=== PATIENT | female | born 1930 | race Caucasian/White ===

== ENCOUNTER 2016-06-22 00:01 | Outpatient (POV) ==
[2012-09-17 12:01] VITALS: TEMP 97.7
[2015-07-10 22:01] VITALS: BMI 23.9
== END 2016-06-22 00:02 ==
LOC: OUTPT 00:01
PROVIDERS: ATTEND Otolaryngology
DX: H69.90 Unspecified Eustachian tube disorder, unspecified ear (principal)
CPT/HCPCS: 92557; 92567

== ENCOUNTER 2016-06-28 09:23 | Outpatient (RCR) ==
[2012-09-17 12:01] VITALS: TEMP 97.7
[2015-07-10 22:01] VITALS: BMI 23.9
== END 2016-07-01 ==
LOC: NEWBEG 09:23
PROVIDERS: ATTEND Psychiatry & Neurology Psychiatry
DX: Z00.00 Encounter for general adult medical examination without abnormal findings (principal)

== ENCOUNTER 2016-07-08 00:01 | Outpatient (POV) ==
[2012-09-17 12:01] VITALS: TEMP 97.7
[2015-07-10 22:01] VITALS: BMI 23.9
== END 2016-07-08 00:02 ==
LOC: OUTPT 00:01
PROVIDERS: ATTEND Otolaryngology
DX: H69.90 Unspecified Eustachian tube disorder, unspecified ear (principal)
CPT/HCPCS: 92553; 92567

== ENCOUNTER 2016-07-22 11:59 | Outpatient (RCR) ==
[2012-09-17 12:01] VITALS: TEMP 97.7
[2015-07-10 22:01] VITALS: BMI 23.9
== END 2016-07-31 ==
LOC: NEWBEG 11:59
PROVIDERS: ATTEND Psychiatry & Neurology Psychiatry
DX: F41.9 Anxiety disorder, unspecified (principal)
CPT/HCPCS: 90792

== ENCOUNTER 2016-08-10 12:34 | Outpatient (CLI) ==
[2012-09-17 12:01] VITALS: TEMP 97.7
[2015-07-10 22:01] VITALS: BMI 23.9
--- NOTE | 2016-08-10 13:15 | DI ---
Exam: Two x-rays of the right hip. Comparison: CT of the abdomen pelvis performed on 04/28/2015. Reason for exam: Pain. FINDINGS: No acute fracture or dislocation. The femoral head articulates with the acetabulum. The re is mild degenerative disease with osteophyte formation and sclerosis. The bones are diffusely de mineralized. Impression: No acute fracture or dislocation in the right hip.
--- NOTE | 2016-08-10 13:23 | CT ---
EXAM: CT lumbar spine without contrast. HISTORY: Lower back pain into right hip COMPARISON: CT abdomen pelvis 04/28/2015 TECHNIQUE: Serial axial images of the spine were obtained from the lower thoracic spine through the pelvis without contrast. These were viewed in multiple planes. FINDINGS: Vertebral bodies demonstrate no acute compression fracture or subluxation. There is scat tered anterior and posterior osteophytes and facet arthropathy. There is narrowing and osteophyte f ormation at L5-S1. There is no lytic or blastic lesion. There is chronic appearing mild chronic we dge deformity at T11. L1-L2: Mild degenerative change with no central or neural foraminal narrowing. L2-L3: Small broad-based disc bulge and facet arthropathy with no central or neural foraminal narrow ing. L3-L4: There is a small broad-based disc bulge and facet arthropathy with no central or neural brittny inal narrowing. L4-L5: Broad-based disc bulge with mild central and mild bilateral neural foraminal narrowing. L5-S1: Broad-based disc bulge and facet arthropathy with mild central and bilateral mild to moderate neural foraminal narrowing. Limited views of the soft tissues are unremarkable with mild atherosclerotic change. IMPRESSION: 1. No acute compression fracture or subluxation. 2. Multilevel scattered degenerative disease most pronounced at L5-S1 with mild central bilateral m ild to moderate neural foraminal narrowing.
== END 2016-08-10 12:35 | disposition home or self-care (01) ==
LOC: RAD 12:34
PROVIDERS: ATTEND Internal Medicine
DX: M54.5 Low back pain (principal); M25.551 Pain in right hip

== ENCOUNTER 2016-08-16 10:00 | Outpatient (RCR) ==
[2012-09-17 12:01] VITALS: TEMP 97.7
[2015-07-10 22:01] VITALS: BMI 23.9
== END 2016-08-31 ==
LOC: NEWBEG 10:00
PROVIDERS: ATTEND Psychiatry & Neurology Psychiatry
DX: F41.9 Anxiety disorder, unspecified (principal)
CPT/HCPCS: 90837; 99213

== ENCOUNTER 2016-09-13 09:00 | Outpatient (RCR) ==
[2012-09-17 12:01] VITALS: TEMP 97.7
[2015-07-10 22:01] VITALS: BMI 23.9
== END 2016-09-30 ==
LOC: NEWBEG 09:00
PROVIDERS: ATTEND Psychiatry & Neurology Psychiatry
DX: F41.9 Anxiety disorder, unspecified (principal)
CPT/HCPCS: 90837; 99213

== ENCOUNTER 2016-09-22 06:41 | Outpatient (CLI) ==
[2012-09-17 12:01] VITALS: TEMP 97.7
[2015-07-10 22:01] VITALS: BMI 23.9
--- NOTE | 2016-09-26 08:55 | ECHO2D ---
Date of Exam: 09/22/16 Ordering Physician: NOMI ZAZUETA Reason for Echo: CHEST PAIN, HYPERTENSION, SOB M-Mode Normal Adult Results LV Dimensions Normal Adult Results AoV Opening excursions >1.6 >1.6 LVEDD-base- 3.5-5.8 4.5 Ao root dimensions 2.0-3.7 3.2 LVESD-base- 3.1-4.6 L. Atrium dimensions 1.9-3.8 4.2 Post. Wall thickness 0.8-1.1 1.0 IV septum (thickness) 0.7-1.2 1.2 Post. Wall excursion 0.72-1.3 NORMAL Septal motion NORMAL Systolic motion R. Ventricular cavity 1.5-2.0 NORMAL LVEF 60% 56% Paradoxical septal wall motion NORMAL 2-D : NORMAL LEFT VENTRICULAR CONTRACTILITY--NO EFFUSION NO THROMBUS, NORMAL VALVES, ENLARGED LEFT ATRIAL CAVITY M-MODE: MV: NORMAL AV: NORMAL TV: NORMAL PV: CHAMBER SIZE: ENLARGED LEFT ATRIAL CAVITY WALL MOTION: NORMAL PERICARDIUM: NORMAL INTERPRETATION: 1. BORDERLINE LEFT VENTRICULAR HYPERTROPHY--ENLARGED LEFT ATRIAL CAVITY 2. NORMAL LEFT VENTRICULAR CONTRACTILITY 3. NORMAL VALVES MTDD
--- NOTE | 2016-09-26 09:39 | STRESSMOD ---
Ordering Physician: NOMI ZAZUETA Date of Test: 09/22/16 Medical History: CHEST PAIN, HYPERTENSION, SOB Current Medications: COREG, SYNTHROID, CLONIDINE, BENICAR, NIFEDIPINE, SIMVASTATIN, ALPRAZOLAM Physical Findings: S1, S2, NO S3 Resting EKG: SINUS RHYTHM, NO ACUTE CHANGES Target Heart Rate: 113/133 STAGE MPH/GRADE HEART RATE BPM BLOOD PRESSURE mmhg RHYTHM S-T SEGMENT UP DOWN SYMPTOMS,COMMENTS At Rest 57 160/70 SR X NONE 1 1.7/0% 2 1.7/5% 3 1.7/10% 4 2.5/12% 5 3.4/14% 6 4.2/16% 7 5.18% Immediately after 136 196/88 SR X FATIGUE Total Time: 2:43 Maximum Heart Rate Reached: 136 Reason for Termination: FATIGUE 2 MIN POST EXERCISE: HR 84 BPM, BP 198/66 MMHG, SR, +/- 8 MIN POST EXERCISE: HR 62 BPM, BP 138/74 MMHG, SR, +/- INTERPRETATION: 95% OXYGEN SATURATION WITH EXERCISE 1. NO EVIDENCE OF ISCHEMIA BY ST-T WAVE 2. NO CHEST PAIN OR CHEST DISCOMFORT 3. NO ARRHYTHMIAS 4. BLOOD PRESSURE RESPONSE: HYPERTENSION WITH EXERCISE NORMAL LEFT VENTRICULAR CONTRACTILITY--RESTING AND POST EXERCISE MTDD
--- NOTE | 2016-09-26 09:51 | ECHOSTRESS ---
Date of Exam: 09/22/16 Ordering Physician: NOMI ZAZUETA Reason for Echo: CHEST PAIN, SOB, HYPERTENSION, STRESS TEST--NO ISCHEMIA M-Mode Normal Adult Results LV Dimensions Normal Adult Results AoV Opening excursions >1.6 LVEDD-base- 3.5-5.8 Ao root dimensions 2.0-3.7 LVESD-base- 3.1-4.6 L. Atrium dimensions 1.9-3.8 Post. Wall thickness 0.8-1.1 IV septum (thickness) 0.7-1.2 Post. Wall excursion 0.72-1.3 Septal motion Systolic motion R. Ventricular cavity 1.5-2.0 LVEF 60% Paradoxical septal wall motion 2-D: NORMAL LEFT VENTRICULAR CONTRACTILITY--RESTING AND POST EXERCISE M-MODE: MV: AV: TV: PV: CHAMBER SIZE: WALL MOTION: NORMAL LEFT VENTRICULAR CONTRACTILITY--RESTING AND POST EXERCISE PERICARDIUM: INTERPRETATION: 1. NORMAL LEFT VENTRICULAR CONTRACTILITY--RESTING AND POST EXERCISE MTDD
== END 2016-09-22 06:42 | disposition home or self-care (01) ==
LOC: CAR 06:41
PROVIDERS: ATTEND Internal Medicine
DX: R07.9 Chest pain, unspecified (principal); I10 Essential (primary) hypertension; R06.02 Shortness of breath

== ENCOUNTER 2016-10-03 07:00 | Outpatient (RCR) ==
[2012-09-17 12:01] VITALS: TEMP 97.7
[2015-07-10 22:01] VITALS: BMI 23.9
== END 2016-10-31 ==
LOC: NEWBEG 07:00
PROVIDERS: ATTEND Psychiatry & Neurology Psychiatry
DX: F41.9 Anxiety disorder, unspecified (principal)

== ENCOUNTER 2016-11-01 09:19 | Outpatient (RCR) ==
[2012-09-17 12:01] VITALS: TEMP 97.7
[2015-07-10 22:01] VITALS: BMI 23.9
== END 2016-12-01 ==
LOC: NEWBEG 09:19
PROVIDERS: ATTEND Psychiatry & Neurology Psychiatry
DX: X50.1XXA Overexertion from prolonged static or awkward postures, initial encounter (principal)

== ENCOUNTER 2017-06-14 07:55 | Outpatient (CLI) ==
[2012-09-17 12:01] VITALS: TEMP 97.7
[2015-07-10 22:01] VITALS: BMI 23.9
--- NOTE | 2017-06-14 09:33 | DI ---
EXAM: Double contrast esophagram and upper GI History: Dysphagia. Technique: Patient was given gas crystals. Patient was then given oral barium and multiple spot hugo ms of the esophagus, gastroesophageal junction, stomach and duodenum were obtained in multiple projec tions. Findings: The course and caliber of the esophagus are within normal limits. No mucosal lesions or filling defe cts identified. No filling defects or ulcerations are seen within the stomach. No obvious gastric p olyps. The course and caliber of the duodenum is within normal limits. No duodenal wall thickening. No duodenal diverticuli. No extravasation of contrast material. Cholecystectomy clips. No gastri c outlet obstruction. No hiatal hernia. No gastroesophageal reflux was observed during the course of this exam. Impression: Normal study.
== END 2017-06-14 07:56 | disposition home or self-care (01) ==
LOC: RAD 07:55
PROVIDERS: ATTEND Internal Medicine
DX: R13.10 Dysphagia, unspecified (principal)

== ENCOUNTER 2018-04-11 12:48 | Outpatient (CLI) | payer OTHER ==
[2012-09-17 12:01] VITALS: TEMP 97.7
[2015-07-10 22:01] VITALS: BMI 23.9
--- NOTE | 2018-05-15 10:39 | CARDEVENT ---
SUMMARY OF EVENTS Procedure Start Date: 04/11/18 Compliance: 91.29% Procedure Length: 30 days Symptomatic: 15.28% Recording Period: 04/11/18-05/08/18 Asymptomatic: 84.72% Report Span: - Wear Time: 613:30:00 Hrs Dormant Time: 58:30:00 Hrs INTERPRETATIONS: 1. BASIC RHYTHM: SINUS, RATE 35 BPM TO 90 BPM. 2. RARE PAC'S AND PVC'S 3. FEW SALVOS AND RUN OF FOUR PVC'S 4. COUPLE OF SVT/PAT, THREE TO SIX BEATS 5. NO PAUSES GREATER THAN 2.0 SECONDS MTDD
== END 2018-04-11 12:49 | disposition home or self-care (01) ==
LOC: CAR 12:48
PROVIDERS: ATTEND Internal Medicine
DX: R55 Syncope and collapse (principal); I10 Essential (primary) hypertension; R00.1 Bradycardia, unspecified

== ENCOUNTER 2018-06-26 14:26 | Inpatient (IN) ==
[2018-06-26 15:11] VITALS: BMI 23.1
[2018-06-26] MEDS: SODIUM CHLORIDE 1,000 ML IV SCH (15:42)
[2018-06-26] MEDS ORDERED: NITROSTAT SL PRN (15:47)
--- NOTE | 2018-06-26 17:38 | DI ---
Exam: Chest two-view HISTORY: Cough. Comparison: 03/20/2015. FINDINGS: Two views of the chest demonstrate hyper expanded lungs with no evidence of pneumonia or e renae. There is persistent blunting of the left costophrenic angle. The cardiac silhouette is mildly enlarged. The thoracic aorta is partially calcified. Calcified granulomata are noted. The pulmona ry vasculature is not congested. The skeletal structures are intact. There are degenerative finding s in the spine. Surgical clips again project over the bilateral axilla. IMPRESSION: No acute cardiopulmonary disease. Hyperexpanded lungs consistent with COPD. Atherosclerosis. Mild cardiomegaly.
--- NOTE | 2018-06-26 18:28 | CT ---
Exam: CT of the abdomen and pelvis without contrast History: Lower abdomen pain and tenderness Technique: [address] of the abdomen and pelvis without intravascular contrast FINDINGS: The lung bases are clear. No significant liver abnormality. The adrenals, pancreas and s pleen are unremarkable. The stomach and hiatus are unremarkable.Prior cholecystectomy. There is a 2 mm nonobstructing calculus in the right kidney. Otherwise, kidneys and proximal collecting system a re unremarkable. The appendix is not seen. Bowel loops demonstrate normal caliber. No inflamatory change seen in the mesentery or retroperitoneum. Generally mild jain colonic stool retention. Athero sclerotic calcification of the aorta without aneurysm. Colonic diverticulosis of the sigmoid. Pelvic fat inflammation. Normal urinary bladder. Prior hyst erectomy. No acute findings of the skeleton. Impression: 1. No inflammatory process, bowel or urinary obstruction is seen. 2. Single nonobstructing calculus of the right kidney 3. Colonic diverticulosis of the sigmoid
[2018-06-26] MEDS: MIRALAX PO SCH (20:50)
[2018-06-26] MEDS: CATAPRES PO SCH (20:50)
[2018-06-26] MEDS: XANAX PO SCH (20:50)
[2018-06-26] MEDS: OMEGA-3 FISH OIL PO SCH (20:50)
[2018-06-26] MEDS ORDERED: NON-FORMULARY MEDICATION (Clonidine Hcl [Clonidine Hcl] 0.2 MG) PO SCH (21:00)
[2018-06-26] MEDS ORDERED: NON-FORMULARY MEDICATION (Omega-3 Fatty Acids/Fish Oil [Fish Oil 1,000 Mg Capsule] 1,000 M PO SCH (21:00)
[2018-06-27] MEDS: SYNTHROID PO SCH (05:33)
[2018-06-27] MEDS: SODIUM CHLORIDE 1,000 ML IV SCH ×3 (05:33→22:31)
[2018-06-27] MEDS ORDERED: LASIX TAB PO SCH (06:30)
[2018-06-27] MEDS ORDERED: CITRATE OF MAGNESIA PO STA (08:27)
[2018-06-27] MEDS ORDERED: NIFEDIPINE 60 MG PO SCH (09:00)
[2018-06-27] MEDS ORDERED: [UNRECOGNIZED DRUG - OTHER] PO SCH (09:00)
[2018-06-27] MEDS: MIRALAX PO SCH ×2 (09:09→21:04)
[2018-06-27] MEDS: OMEGA-3 FISH OIL PO SCH ×3 (09:10→21:03)
[2018-06-27] MEDS: CATAPRES PO SCH ×2 (09:10→21:03)
[2018-06-27] MEDS: ASPIRIN CHEWABLE PO SCH (09:10)
[2018-06-27] MEDS: PROCARDIA XL PO SCH (09:11)
[2018-06-27] MEDS: XANAX PO SCH ×3 (09:12→21:03)
[2018-06-27] MEDS: ZOCOR PO SCH (09:12)
--- NOTE | 2018-06-27 09:12 | PCM.PROG ---
Attending Provider: ATTENDING PROVIDER: Dr. NOMI ZAZUETA This patient is seen with Verónica Dominguez, Nurse Practitioner. DATE OF SERVICE: 06/27/18 SUBJECTIVE: This 87 year old WHITE/ F was hospitalized 06/26/18. The patient is resting comfortably. She had very small pellet like stool last night. Her abdominal pain has improved slightly but still not much appetite. No obstruction per CT. REVIEW OF SYSTEMS: CONSTITUTIONAL: No night sweats. No fatigue, malaise, lethargy. No fever or chills. HEENT: Eyes: No visual changes. No eye pain. No eye discharge. ENT: No runny nose. No epistaxis. No sinus pain. No odynophagia. No congestion. RESPIRATORY: No cough, no congestion. No hemoptysis. No shortness of breath. CARDIOVASCULAR: No angina symptoms. No CHF symptoms. No atypical chest pain for CAD. No palpitations. No orthopnea.. GASTROINTESTINAL: No abdominal pain. No nausea or vomiting. Constipation. No hematemesis. No hematochezia. Loss of appetite. GENITOURINARY: No urgency. No frequency. No dysuria. No hematuria. No obstructive symptoms. No discharge. No pain. No significant abnormal bleeding. MUSCULOSKELETAL: No musculoskeletal pain; no joint swelling. Weakness. NEUROLOGICAL: Awake, alert, oriented to time, place and person. No headache. No neck pain. No syncope. No seizures. No dizziness. PSYCHIATRIC: Not anxious. No depression. No suicidal thoughts. No homicidal thoughts. SKIN: No rash. No lesions. No wounds. ENDOCRINE: No unexplained weight loss. No weight gain. HEMATOLOGIC/LYMPHATIC: No anemia. No purpura. No petechiae. No prolonged or excessive bleeding. No palpable lymph nodes. PHYSICAL EXAMINATION: GENERAL: The patient is awake, alert and oriented, lying in bed in no distress. VITAL SIGNS: Temperature 97.8 F, Pulse 49, Respiratory Rate 16, BP 127/53, Pulse Ox 96% HEENT: Head normocephalic, atraumatic. Eyes: Extraocular muscles are intact. Pupils are equal, round and reactive to light and accommodation. Ears: No lesions. Nose appeared normal. Throat: No exudate or erythema. NECK: Supple. No JVD, no carotid bruit. No lymphadenopathy or thyromegaly. LUNGS: Diminished breath sounds. Clear to auscultation. Percussion note normal. Chest symmetrical. HEART: S1, S2, no S3. No murmurs. No cyanosis or clubbing. No ascites. Pulses: Dorsalis pedis and posterior tibial pulses +1 to +2 both sides. ABDOMEN: Soft. Mildly distended with mild diffused tenderness. Bowel sounds active. No CVA tenderness. No mass felt. EXTREMITIES: No edema. Full range of motion of all extremities, equal. NEUROLOGIC: No focal deficit. Cranial nerves II through XII are grossly intact. No headache, no double vision or headache. SKIN: Not dry. Intact. Turgor-normal. LYMPHATIC: No palpable lymph nodes/no lymphedema. MUSCULOSKELETAL: Normal joints with no swelling. Muscle tone is normal. LAB REVIEW: 06/27/18 05:00 06/27/18 05:00 06/27/18 05:00: Sodium 140.3, Potassium 4.00, Chloride 107.1 H, Carbon Dioxide 25.9, Anion Gap 11.30, BUN 11.2, Creatinine 0.79, Estimated GFR (MDRD) 69.00, BUN/Creatinine Ratio 14.17, Glucose 84.8, Calcium 8.87, Total Bilirubin 0.38, AST 28.1, ALT 19.8, Alkaline Phosphatase 40.4 L, Total Protein 6.02 L, Albumin 3.96, Globulin 2.06, Albumin/Globulin Ratio 1.92 06/27/18 05:00: WBC 4.75, RBC 3.50 L, Hgb 10.4 L, Hct 32.1 L, MCV 91.7, MCH 29.7 , MCHC 32.4, RDW Coeff of Tristin 12.1, Plt Count 167, Immature Gran % (Auto) 0.2, Neut % (Auto) 39.8, Lymph % (Auto) 41.5, [place] % (Auto) 15.6 H, Eos % (Auto) 2.1 , Baso % (Auto) 0.8, Immature Gran # (Auto) 0.0, Neut # (Auto) 1.9 L, Lymph # ( Auto) 2.0, [place] # (Auto) 0.7, Eos # (Auto) 0.1, Baso # (Auto) 0.0 06/26/18 17:13: Urine Color Yellow, Urine Clarity Clear, Urine pH 7.0, Ur Specific [place] 1.010, Urine Protein Negative, Urine Glucose (UA) Negative, Urine Ketones Trace, Urine Blood Trace-intact, Urine Nitrite Negative, Urine Bilirubin Negative, Urine Urobilinogen 0.2, Ur Leukocyte Esterase Negative, Urine Microscopic RBC 0-2, Ur Squamous Epith Cells Not present 06/26/18 15:42: Sodium 137.4, Potassium 4.14, Chloride 102.7, Carbon Dioxide 26.6, Anion Gap 12.24, BUN 14.1, Creatinine 0.84, Estimated GFR (MDRD) 64.00, BUN/Creatinine Ratio 16.78, Glucose 85.9, Calcium 9.29, Total Bilirubin 0.56, AST 30.2, ALT 21.3, Alkaline Phosphatase 41.7 L, Total Protein 6.33, Albumin 4.31, Globulin 2.02, Albumin/Globulin Ratio 2.13 06/26/18 15:42: WBC 4.71, RBC 3.51 L, Hgb 10.5 L, Hct 32.0 L, MCV 91.2, MCH 29.9 , MCHC 32.8, RDW Coeff of Tristin 12.1, Plt Count 173, Immature Gran % (Auto) 0.2, Neut % (Auto) 47.0, Lymph % (Auto) 38.9, [place] % (Auto) 12.5 H, Eos % (Auto) 0.6 , Baso % (Auto) 0.8, Immature Gran # (Auto) 0.0, Neut # (Auto) 2.2, Lymph # ( Auto) 1.8, [place] # (Auto) 0.6, Eos # (Auto) 0.0, Baso # (Auto) 0.0 ASSESSMENT: Please see below. 1. Severe constipation 2. Generalized weakness. 3. Abdominal pain PLAN: 1. Decrease fluids to 50cc 3. Half bottle of Magnesium Citrate 3. Fleets enema. Plan and coordination of the patient's care discussed in the presence of Cartoon Animator and nurse. SCRIBED BY: YASSINE LAYTON Open Winder scribed while in presence of service performed by Dr. Zazueta/Verónica Dominguez APRN on 06/27/18 ([id number])
[2018-06-27] MEDS: [UNRECOGNIZED DRUG - OTHER] EACHEYE SCH (10:00)
[2018-06-28] MEDS: SYNTHROID PO SCH (05:41)
[2018-06-28] MEDS ORDERED: CITRATE OF MAGNESIA PO STA (08:38)
[2018-06-28] MEDS: ZOCOR PO SCH (09:07)
[2018-06-28] MEDS: MIRALAX PO SCH ×2 (09:07→21:23)
[2018-06-28] MEDS: ASPIRIN CHEWABLE PO SCH (09:07)
[2018-06-28] MEDS: PROCARDIA XL PO SCH (09:08)
[2018-06-28] MEDS: OMEGA-3 FISH OIL PO SCH ×3 (09:08→21:25)
[2018-06-28] MEDS: CATAPRES PO SCH ×2 (09:08→21:25)
[2018-06-28] MEDS: [UNRECOGNIZED DRUG - OTHER] EACHEYE SCH (09:09)
[2018-06-28] MEDS: XANAX PO SCH ×3 (09:12→21:25)
--- NOTE | 2018-06-28 09:24 | PCM.PROG ---
Attending Provider: ATTENDING PROVIDER: Dr. NOMI ZAZUETA This patient is seen with Verónica Dominguez, Nurse Practitioner. DATE OF SERVICE: 06/28/18 SUBJECTIVE: This 87 year old WHITE/ F was hospitalized 06/26/18. The patient is resting comfortably. She had three small bowel movements yesterday. Her abdomen is not as tender. REVIEW OF SYSTEMS: CONSTITUTIONAL: No night sweats. No fatigue, malaise, lethargy. No fever or chills. HEENT: Eyes: No visual changes. No eye pain. No eye discharge. ENT: No runny nose. No epistaxis. No sinus pain. No odynophagia. No congestion. RESPIRATORY: No cough, no congestion. No hemoptysis. No shortness of breath. CARDIOVASCULAR: No angina symptoms. No CHF symptoms. No atypical chest pain for CAD. No palpitations. No orthopnea.. GASTROINTESTINAL: No abdominal pain. No nausea or vomiting. Constipation. No hematemesis. No hematochezia. GENITOURINARY: No urgency. No frequency. No dysuria. No hematuria. No obstructive symptoms. No discharge. No pain. No significant abnormal bleeding. MUSCULOSKELETAL: No musculoskeletal pain; no joint swelling. NEUROLOGICAL: Awake, alert, oriented to time, place and person. No headache. No neck pain. No syncope. No seizures. No dizziness. PSYCHIATRIC: Not anxious. No depression. No suicidal thoughts. No homicidal thoughts. SKIN: No rash. No lesions. No wounds. ENDOCRINE: No unexplained weight loss. No weight gain. HEMATOLOGIC/LYMPHATIC: No anemia. No purpura. No petechiae. No prolonged or excessive bleeding. No palpable lymph nodes. PHYSICAL EXAMINATION: GENERAL: The patient is awake, alert and oriented, lying in bed in no distress. VITAL SIGNS: Temperature 97.9 F, Pulse 61, Respiratory Rate 16, BP 110/64, Pulse Ox 96% HEENT: Head normocephalic, atraumatic. Eyes: Extraocular muscles are intact. Pupils are equal, round and reactive to light and accommodation. Ears: No lesions. Nose appeared normal. Throat: No exudate or erythema. NECK: Supple. No JVD, no carotid bruit. No lymphadenopathy or thyromegaly. LUNGS: Diminished breath sounds. Clear to auscultation. Percussion note normal. Chest symmetrical. HEART: S1, S2, no S3. No murmurs. No cyanosis or clubbing. No ascites. Pulses: Dorsalis pedis and posterior tibial pulses +1 to +2 both sides. ABDOMEN: Soft, still slightly firm. Non-tender. Bowel sounds active. No CVA tenderness. No mass felt. EXTREMITIES: No edema. Full range of motion of all extremities, equal. NEUROLOGIC: No focal deficit. Cranial nerves II through XII are grossly intact. No headache, no double vision or headache. SKIN: Not dry. Intact. Turgor-normal. LYMPHATIC: No palpable lymph nodes/no lymphedema. MUSCULOSKELETAL: Normal joints with no swelling. Muscle tone is normal. LAB REVIEW: 06/28/18 05:15 06/28/18 05:15 06/28/18 05:15: Sodium 139.0, Potassium 3.70, Chloride 106.6, Carbon Dioxide 27.4, Anion Gap 8.70, BUN 12.3, Creatinine 0.82, Estimated GFR (MDRD) 66.00, BUN /Creatinine Ratio 15.00, Glucose 89.0, Calcium 8.48, Total Bilirubin 0.32, AST 28.3, ALT 17.4, Alkaline Phosphatase 35.9 L, Total Protein 5.37 L, Albumin 3.43 L, Globulin 1.94, Albumin/Globulin Ratio 1.76 06/28/18 05:15: WBC 4.50 L, RBC 3.24 L, Hgb 9.4 L, Hct 29.6 L, MCV 91.4, MCH 29.0, MCHC 31.8, RDW Coeff of Tristin 12.3, Plt Count 158, Immature Gran % (Auto) 0.0, Neut % (Auto) 51.0, Lymph % (Auto) 32.0, [place] % (Auto) 14.4 H, Eos % (Auto ) 2.2, Baso % (Auto) 0.4, Immature Gran # (Auto) 0.0, Neut # (Auto) 2.3, Lymph # (Auto) 1.4, [place] # (Auto) 0.7, Eos # (Auto) 0.1, Baso # (Auto) 0.0 06/27/18 09:05: Stl Occult Blood (IFOB) Negative, Stool Occult Blood #2 No specimen received, Stool Occult Blood #3 No specimen received 06/27/18 05:00: TSH 0.711 06/27/18 05:00: Free T4 1.85 ASSESSMENT: Please see below. 1. Severe constipation 2. Generalized weakness. 3. Abdominal pain, improved PLAN: 1. Discontinue IV fluids 2. One bottle Magnesium Citrate 3. Fleets enema 4. Repeat abdominal x-ray Plan and coordination of the patient's care discussed in the presence of Manager Supply Chain Planning and nurse. EDUCATION: CONDITION: SCRIBED BY: Douglas CORRALES scribed while in presence of service performed by Dr. Zazueta/Verónica Dominguez APRN on 06/28/18 ([id number])
[2018-06-28] MEDS: SODIUM CHLORIDE 1,000 ML IV SCH (10:34)
--- NOTE | 2018-06-28 12:57 | DI ---
Exam: KUB. HISTORY: Constipation, abdominal pain. Comparison: 06/26/2018. Findings: Supine image of the abdomen and pelvis demonstrates no dilated bowel, bowel wall edema or pneumatosis. There is no organomegaly or suspicious calcification. Degenerative findings are noted in the hips and spine. Impressions: Nonspecific bowel gas pattern without dilated bowel to suggest obstruction. The small right-sided nephrolith noted on the 06/26/2018 CT is not seen on this KUB. Prior cholecystectomy.
--- NOTE | 2018-06-28 14:04 | HP ---
DATE OF SERVICE: 06/26/18 REASON FOR HOSPITALIZATION/HISTORY OF PRESENT ILLNESS: The patient has not has bowel movement in 10days. She has abdominal pain. The patient takes Miralax twice a day. Abdomen is bloated and has only had blackish water. She is tired, not feeling well and not eating. [facility] this morning. PAST MEDICAL HISTORY: Heart attack 1986 Coronary artery disease Hypercholesterolemia Anxiety Dyslipidemia Juan arrhythmia per Holter Back muscle spasm lumbar Anxiety/panic Right sciatica YONATAN Hypertension/LVH DJD spine Alzheimer's Dementia CA breast bilateral mastectomy, CA <83 6-18. 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 HEENT: No sinus drainage, no sore throat. RESPIRATORY: No cough, no congestion. CARDIOVASCULAR: No atypical chest pain for coronary artery disease. No angina , CHF symptoms, palpitations or shortness of breath. GASTROINTESTINAL: No melena. Abdominal pain. No GERD. Bloated GENITOURINARY: No hematuria, no prostatism, no polyuria. BRANDS EDITOR: No blackout, no dizziness, no headache, no double vision. MUSCULOSKELETAL: Osteoarthritis pain, no joint swelling. ENDOCRINE: No weight loss, no weight gain. SKIN: Not dry, no rash. PSYCHIATRIC: Not anxious, no depression, no suicidal thoughts, no homicidal thoughts. SOCIAL HISTORY: Marital Status: . Alcohol Usage: No. Tobacco Usage: No. FAMILY HISTORY: Father CAD Mother CHF Brother 4, 2 of scarlet fever, one at and 79 year old? Sisters 3, two ; one CA breast and one lupus. One sister alive age 91 diabetes mellitus MEDICATIONS: Clonidine 0-2mg twice a day Xanax 0.25mg three times a day Simvastatin 40mg PO daily Icaps one daily Fish oil three times a day Nitroglycerin ASA 81mg PO daily Eye drops daily Synthroid PO daily Nifedipine 60mg PO daily Coreg 6.25mg twice a day Miralax twice a day Lasix 20mg PO twice a week ALLERGIES: Lexapro Namenda Aricept Lipitor Lotrel Vytorin Z-pack Vicodin PHYSICAL EXAMINATION: V/S: Pulse 66, blood pressure 112/60, temperature 98.2, oxygen saturation 98%. Height 5'5, BMI 22 and Weight 132.2. GENERAL APPEARANCE: Oriented times three. HEENT: Normal. NECK: No JVP, no bruits. RESPIRATORY: Lungs are clear. CARDIOVASCULAR: S1, S2, no S3, no murmurs. No cyanosis, clubbing. No ascites. GI/ABDOMEN: Diffused tenderness. Worse right lower quadrant. Bowel sounds are active. EXTREMITIES: Trace edema, pulses +1, equal. BRANDS EDITOR: Deep tendon reflexes, sensory, motor and gait all normal. RECTAL: Dr. Costello 09/17/PELVIC: bilateral mastectomy . ASSESSMENT: 1. Abdominal pain 2. Constipation 3. Loss of appetite 4. Anxiety 5. Dyslipidemia 6. Juan arrhythmia per Holter 7. Back muscle spasm lumbar 8. Anxiety/panic 9. Right sciatica 10.YONATAN 11.Hypertension/LVH 12.DJD spine 13.Alzheimer's Dementia 14.CA breast bilateral mastectomy, CA 27/29<83 6-18. 15.A1c 5.7on 05/22 16.CA bladder 17.Hypothyroidism PLAN: 1. Admit 2. Routine telemetry- No Cardiac markers 3. CBC and CMP now and daily 4. U/A 5. Chest x-ray 6. CT of abdomen and pelvis with and without 7. Normal saline @ 75cc and hour IV 8. Regular diet 9. Continue home medication 10.Stool for occult blood TIME SPENT: More than 70 minutes. MTDD
--- NOTE | 2018-06-28 16:17 | CT ---
Exam: CT abdomen and pelvis without contrast HISTORY: Abdominal pain. Constipation. History of breast cancer and bladder cancer. Prior cholecy stectomy and hysterectomy. Procedures: 5 mm contiguous axial images were obtained through the abdomen and pelvis without the us e of intravenous or oral contrast. Sagittal and coronal reformatted images were also created and rev iewed. Comparison: KUB 06/28/[address] of the abdomen and pelvis 06/26/2018. Findings: Evaluation of the soft tissues is limited without the use of intravenous or oral contrast. There is redemonstration of mild bibasilar pulmonary atelectasis, left greater than right. Surgica l clips again noted in the gallbladder fossa. The liver, spleen, pancreas and adrenal glands appear stable from prior. The kidneys are symmetric in size. There is a punctate 2 mm calcification in the mid right kidney. No hydroureter or ureterolithiasis is identified. The urinary bladder is nondist ended, without radiodense stones seen. There is a tiny hiatal hernia, otherwise the unopacified stom ach and small bowel appear grossly within normal limits. The appendix is not visualized. The colon does not appear dilated or inflamed. Diverticula are again noted in the sigmoid colon, without adjac ent inflammatory change. There is no free air, free fluid or lymphadenopathy involving the abdomen o r pelvis. Diffuse atherosclerotic disease is noted, without aortic aneurysm. Bone windows demonstrate degenerative findings in the hips and spine. Mild lumbar levoscoliosis is n oted. Impressions: Compared to 06/26/2018 there is stable appearance of the 2 mm calcification in the mid right kidney. No hydronephrosis. No bowel obstruction or acute inflammatory process is identified. Very small hiatal hernia. Diverticulosis without diverticulitis.
[2018-06-29] MEDS: SYNTHROID PO SCH ×2 (05:23→05:56)
[2018-06-29 05:43] VITALS: BP 137/63; TEMP 99
[2018-06-29] MEDS: [UNRECOGNIZED DRUG - OTHER] EACHEYE SCH (09:16)
[2018-06-29] MEDS: ASPIRIN CHEWABLE PO SCH (09:16)
[2018-06-29] MEDS: XANAX PO SCH (09:17)
[2018-06-29] MEDS: CATAPRES PO SCH (09:17)
[2018-06-29] MEDS: MIRALAX PO SCH (09:17)
[2018-06-29] MEDS: OMEGA-3 FISH OIL PO SCH (09:17)
[2018-06-29] MEDS: PROCARDIA XL PO SCH (09:17)
[2018-06-29] MEDS: ZOCOR PO SCH (09:17)
--- NOTE | 2018-06-29 10:57 | PCM.PROG ---
Attending Provider: ATTENDING PROVIDER: Dr. NOMI ZAZUETA DATE OF SERVICE: 06/29/18 SUBJECTIVE: This 87 year old WHITE/ F was hospitalized 06/26/18 with abdominal pain , constipation and loss of appetite. Her condition has improved and her bowels have moved very well. The patient has been up and about feeling well. Appetite is normal. No evidence of CHF or coronary insufficiency. REVIEW OF SYSTEMS: CONSTITUTIONAL: No night sweats. No fatigue, malaise, lethargy. No fever or chills. HEENT: Eyes: No visual changes. No eye pain. No eye discharge. ENT: No runny nose. No epistaxis. No sinus pain. No odynophagia. No congestion. RESPIRATORY: No cough, no congestion. No hemoptysis. No shortness of breath. CARDIOVASCULAR: No angina symptoms. No CHF symptoms. No atypical chest pain for CAD. No palpitations. No orthopnea.. GASTROINTESTINAL: No abdominal pain. No nausea or vomiting. No diarrhea or constipation. No hematemesis. No hematochezia. GENITOURINARY: No urgency. No frequency. No dysuria. No hematuria. No obstructive symptoms. No discharge. No pain. No significant abnormal bleeding. MUSCULOSKELETAL: No musculoskeletal pain; no joint swelling. NEUROLOGICAL: Awake, alert, oriented to time, place and person. No headache. No neck pain. No syncope. No seizures. No dizziness. PSYCHIATRIC: Not anxious. No depression. No suicidal thoughts. No homicidal thoughts. SKIN: No rash. No lesions. No wounds. ENDOCRINE: No unexplained weight loss. No weight gain. HEMATOLOGIC/LYMPHATIC: No anemia. No purpura. No petechiae. No prolonged or excessive bleeding. No palpable lymph nodes. PHYSICAL EXAMINATION: GENERAL: The patient is awake, alert and oriented, lying in bed in no distress. VITAL SIGNS: Temperature 99.0 F, Pulse 51, Respiratory Rate 18, BP 137/63, Pulse Ox 94% HEENT: Head normocephalic, atraumatic. Eyes: Extraocular muscles are intact. Pupils are equal, round and reactive to light and accommodation. Ears: No lesions. Nose appeared normal. Throat: No exudate or erythema. NECK: Supple. No JVD, no carotid bruit. No lymphadenopathy or thyromegaly. LUNGS: Clear to auscultation. Percussion note normal. Chest symmetrical. HEART: S1, S2, no S3. No murmurs. No cyanosis or clubbing. No ascites. Pulses: Dorsalis pedis and posterior tibial pulses +1 to +2 both sides. ABDOMEN: Soft. Non-tender. Bowel sounds active. No CVA tenderness. No mass felt. EXTREMITIES: No edema. Full range of motion of all extremities, equal. NEUROLOGIC: No focal deficit. Cranial nerves II through XII are grossly intact. No headache, no double vision or headache. SKIN: Warm and dry. Intact. Turgor-normal. LYMPHATIC: No palpable lymph nodes/no lymphedema. MUSCULOSKELETAL: Normal joints with no swelling. Muscle tone is normal. LAB REVIEW: 06/29/18 05:00 06/29/18 05:00 06/29/18 05:00: Sodium 138.9, Potassium 3.75, Chloride 106.4, Carbon Dioxide 26.2, Anion Gap 10.05, BUN 13.9, Creatinine 0.82, Estimated GFR (MDRD) 66.00, BUN/Creatinine Ratio 16.95, Glucose 78.0, Calcium 8.66, Total Bilirubin 0.54, AST 27.1, ALT 17.6, Alkaline Phosphatase 36.7 L, Total Protein 5.43 L, Albumin 3.53, Globulin 1.90, Albumin/Globulin Ratio 1.85 06/29/18 05:00: WBC 5.55, RBC 3.21 L, Hgb 9.6 L, Hct 29.2 L, MCV 91.0, MCH 29.9 , MCHC 32.9, RDW Coeff of Tristin 12.4, Plt Count 169, Immature Gran % (Auto) 0.2, Neut % (Auto) 57.6, Lymph % (Auto) 27.2, [place] % (Auto) 12.3 H, Eos % (Auto) 2.0 , Baso % (Auto) 0.7, Immature Gran # (Auto) 0.0, Neut # (Auto) 3.2, Lymph # ( Auto) 1.5, [place] # (Auto) 0.7, Eos # (Auto) 0.1, Baso # (Auto) 0.0 06/28/18 05:15: Carcinoembryonic Ag 2.8, CA 27-29 3.7 ASSESSMENT: Please see below. 1. Abdominal pain with constipation, resolved 2. Cardiovascular status is stable. PLAN: 1. Discharge home today 2 Advised to add Miralax along with milk of magnesium 3. Increase activity 4. Diet discussed. Plan and coordination of the patient's care discussed in the presence of Global Program Director and nurse. SCRIBED BY: Douglas CORRALES scribed while in presence of service performed by Dr. NOMI ZAZUETA on 06/29/18 ([id number])
--- NOTE | 2018-06-29 10:59 | DS ---
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 HOME MEDICATIONS TO BE RESUMED, INCLUDING MIRALAX. MAY TAKE MILK OF MAGNESIA 30 ML (1 OUNCE) NEEDED FOR CONSTIPATION. AN APPOINTMENT IS SCHEDULED WITH DR. ZAZUETA ON July AT 1015. CODE STATUS: FULL CODE TAKE THESE MEDICATIONS AT HOME: Alprazolam (Xanax) 0.25 mg PO TID [facility] Aspirin (Aspirin Chewable) 81 mg PO DAILYWM [facility] Clonidine (Catapres) 0.2 mg PO BID [facility] Fish Oil ([place]-3 Fish Oil) 1,000 mg PO TID [facility] Furosemide (Lasix Tab) 20 mg PO WeSa@0630 [facility] Levothyroxine Sodium (Synthroid) 100 mcg PO QDAC [facility] Nifedipine (Procardia Xl) 60 mg PO DAILY [facility] Nitroglycerin (Nitrostat) 0.4 mg SL Q5MIN X 3 DOSES PRN Non-Formulary Medication (Non-Formulary Medication [Non-Formulary Medication]) 1 drop EACHEYE DAILY [facility] Polyethylene Glycol (Miralax) 17 gm PO BID [facility] Simvastatin (Zocor) 40 mg PO DAILY [facility] ALLERGIES: No Known Allergies Allergy (Verified 07/10/15 22:01) DISCONTINUED MEDICATIONS: NONE NEW PRESCRIPTIONS: NONE SMOKING: NOT APPLICABLE DISEASE SPECIFIC EDUCATION: CONSTIPATION DIET: REGULAR DIET TOLERATED ACTIVITY: RESUME TOLERATED HOSPITAL COURSE: This is an 87 year old white female hospitalized with abdominal pain, constipation and dehydration. She was given IV fluids and she was tried on Magnesium Citrate and laxatives. Yesterday she moved her bowels. CT scan of the abdomen is unremarkable. Cardiovascular status is stable with no signs of bradyarrhythmia. Overall status is stable. She will be discharged home in stable condition to be followed as an outpatient. TIME SPENT: More than [address] [facility]
--- NOTE | 2018-06-29 11:51 | CM.DICTOOL ---
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, 1991 CHOLECYSTECTOMY, 1993 LAST VITALS Temp Pulse Resp BP Pulse Ox 99.0 F 51 L 18 137/63 94 L 06/29/18 05:42 06/29/18 05:42 06/29/18 05:42 06/29/18 05:42 06/29/18 05:42 TAKE THESE MEDICATIONS AT HOME Alprazolam (Xanax) 0.25 mg PO TID [facility] Last Admin: 06/29/18 09:17 Dose: 0.25 mg Aspirin (Aspirin Chewable) 81 mg PO DAILYWM [facility] Last Admin: 06/29/18 09:16 Dose: 81 mg Clonidine (Catapres) 0.2 mg PO BID [facility] Last Admin: 06/29/18 09:17 Dose: 0.2 mg Fish Oil ([place]-3 Fish Oil) 1,000 mg PO TID [facility] Last Admin: 06/29/18 09:17 Dose: 1,000 mg Furosemide (Lasix Tab) 20 mg PO WeSa@0630 [facility] Last Admin: 06/27/18 05:33 Dose: 20 mg Levothyroxine Sodium (Synthroid) 100 mcg PO QDAC [facility] Last Admin: 06/29/18 05:56 Dose: 100 mcg Nifedipine (Procardia Xl) 60 mg PO DAILY [facility] Last Admin: 06/29/18 09:17 Dose: 60 mg Nitroglycerin (Nitrostat) 0.4 mg SL Q5MIN X 3 DOSES PRN PRN Reason: Chest Pain Non-Formulary Medication (Non-Formulary Medication [Non-Formulary Medication]) 1 drop EACHEYE DAILY [facility] Last Admin: 06/29/18 09:16 Dose: 1 drop Polyethylene Glycol (Miralax) 17 gm PO BID [facility] Last Admin: 06/29/18 09:17 Dose: 17 gm Simvastatin (Zocor) 40 mg PO DAILY [facility] Last Admin: 06/29/18 09:17 Dose: 40 mg ALLERGIES No Known Allergies Allergy (Verified 07/10/15 22:01) DISCONTINUED MEDICATIONS NONE NEW PRESCRIPTIONS: NONE SMOKING: NOT APPLICABLE DISEASE SPECIFIC EDUCATION: CONSTIPATION LAB REVIEW: 06/29/18 05:00 06/29/18 05:00 06/29/18 05:00: Sodium 138.9, Potassium 3.75, Chloride 106.4, Carbon Dioxide 26.2, Anion Gap 10.05, BUN 13.9, Creatinine 0.82, Estimated GFR (MDRD) 66.00, BUN/Creatinine Ratio 16.95, Glucose 78.0, Calcium 8.66, Total Bilirubin 0.54, AST 27.1, ALT 17.6, Alkaline Phosphatase 36.7 L, Total Protein 5.43 L, Albumin 3.53, Globulin 1.90, Albumin/Globulin Ratio 1.85 06/29/18 05:00: WBC 5.55, RBC 3.21 L, Hgb 9.6 L, Hct 29.2 L, MCV 91.0, MCH 29.9 , MCHC 32.9, RDW Coeff of Tristin 12.4, Plt Count 169, Immature Gran % (Auto) 0.2, Neut % (Auto) 57.6, Lymph % (Auto) 27.2, [place] % (Auto) 12.3 H, Eos % (Auto) 2.0 , Baso % (Auto) 0.7, Immature Gran # (Auto) 0.0, Neut # (Auto) 3.2, Lymph # ( Auto) 1.5, [place] # (Auto) 0.7, Eos # (Auto) 0.1, Baso # (Auto) 0.0 06/28/18 05:15: Carcinoembryonic Ag 2.8, CA 27-29 3.7 PLAN: DISCHARGE HOME DIET: REGULAR DIET TOLERATED ACTIVITY: RESUME TOLERATED HOME MEDICATIONS TO BE RESUMED, INCLUDING MIRALAX MAY TAKE MILK OF MAGNESIA 30 ML (1 OUNCE) NEEDED FOR CONSTIPATION AN APPOINTMENT IS SCHEDULED WITH DR. ZAZUETA ON July AT 1015 CODE STATUS: FULL CODE MS. SAEED IS ALERT AND ORIENTED X 3. MS. SAEED LIVES ALONE. SHE IS INDEPENDENT WITH ACTIVITIES OF DAILY LIVING. SHE IS AMBULATORY WITHOUT STAFF ASSISTANCE OR USE OF AN ASSISTIVE DEVICE. SHE IS CONTINENT OF BLADDER AND BOWEL. MS. SAEED IS REPORTING THIN STOOLS TODAY. NO NAUSEA REPORTED, MEAL INTAKES ARE GOOD AT 75 -100%. SHE DENIES ABDOMINAL PAIN. HYDRATION STATUS IS IMPROVED. SKIN IS FREE OF DECUBITUS ULCERS. NOMI ZAZUETA MD
--- NOTE | 2018-07-02 13:06 | PN ---
DATE OF SERVICE: 06/26/18 SUBJECTIVE: The patient was seen and examined with the nurse practitioner. The patient was hospitalized with severe constipation and not feeling good with fatigue and tired feeling. The patient's cardiovascular status is stable. The patient was seen and examined with the nurse practitioner and was hospitalized. TIME SPENT: More than 30 minutes. Plan and coordination of the patient's care discussed in the presence of nurse. CHRISTY
--- NOTE | 2018-07-02 13:17 | PN ---
DATE OF SERVICE: 06/27/18 SUBJECTIVE: The patient was seen and examined today with the nurse practitioner. The patient 's condition seems to be improving. She is eating better. She still hasn't moved her bowels. Will give enema if needed otherwise Mag Citrate. Cardiovascular and GI tract seems to be stable. TIME SPENT: More than 30 minutes. Plan and coordination of the patient's care discussed in the presence of nurse. CHRISTY
--- NOTE | 2018-07-02 13:22 | PN ---
BILLING 06/26/18 LEVEL 5 - ADMISSION DAY 06/27/18 INTERMEDIATE 06/28/18 INTERMEDIATE 06/29/18 DISCHARGE MTDD
== END 2018-06-29 12:35 | disposition home or self-care (01) | DRG 392 ==
LOC: SCU 14:26
PROVIDERS: ADMIT Internal Medicine; ATTEND Internal Medicine
DX: K59.00 Constipation, unspecified (principal); I10 Essential (primary) hypertension; I49.8 Other specified cardiac arrhythmias; E78.5 Hyperlipidemia, unspecified; E86.0 Dehydration; E03.9 Hypothyroidism, unspecified; M19.90 Unspecified osteoarthritis, unspecified site; M54.9 Dorsalgia, unspecified; M54.31 Sciatica, right side; M47.9 Spondylosis, unspecified; F41.8 Other specified anxiety disorders; F41.1 Generalized anxiety disorder; D64.9 Anemia, unspecified; G30.9 Alzheimer's disease, unspecified; F02.80 Dementia in other diseases classified elsewhere, unspecified severity, without behavioral disturbance, psychotic disturbance, mood disturbance, and anxiety; R63.0 Anorexia; R53.1 Weakness
CPT/HCPCS: 36415; 80053; 81001; 82272; 82378; 84439; 84443; 85025; 86300; 87081

== ENCOUNTER 2018-11-22 09:49 | Outpatient (CLI) ==
[2012-09-17 12:01] VITALS: TEMP 97.7
--- NOTE | 2018-11-22 10:24 | DI ---
EXAM: RIGHT FOOT, 3 VIEWS HISTORY: Medial foot and heel pain FINDINGS: Trabecular markings are accentuated consistent with at least mild, diffuse demineralizatio n. There is mild diffuse osteoarthritis. Moderate bony spurring of the posterior calcaneus which ap pears discontinuous at its base. The spur measuring about 9 mm in length. No joint effusion or othe r soft tissue finding IMPRESSION: 1. Discontinuous bony spurring posterior calcaneus consistent with enthesopathy. 2. Mild diffuse osteoarthritis. No acute fracture or dislocation.
== END 2018-11-22 09:50 | disposition home or self-care (01) ==
LOC: RAD 09:49
PROVIDERS: ATTEND Internal Medicine
DX: R35.0 Frequency of micturition (principal); M79.671 Pain in right foot
CPT/HCPCS: 81001; 87086

== ENCOUNTER 2018-11-22 23:47 | Emergency (ER) | payer OTHER ==
[2018-11-22 23:48] VITALS: BMI 23.1
[2018-11-22 23:59] VITALS: TEMP 96.8
--- NOTE | 2018-11-23 00:09 | ED.PDOC ---
General ED Provider: Dr. KEATON WIGGINS Chief Complaint: Hypertension Stated Complaint: My blood pressure is high. She was seen in the clinic today where she was started on a new blood pressure medication with taper of clonidine. She noticed that her blood pressure at home was 208/80. She got worried and came to the Hospital. Denies any headache or orther symptoms such as chest pain. Time Seen by Physician: 00:06 Mode of Arrival: Walk-In Information Source: Patient Primary Care Provider: NOMI ZAZUETA Nursing and Triage Documentation Reviewed and Agree: Yes Does patient meet sepsis criteria?: No System Inflammatory Response Syndrome: Not Applicable Sepsis Protocol: For patient's 13 years and over: Temp is 96.8 and below OR 101 and greater Pulse >90 BPM Resp >20/minute Acutely Altered Mental Status Are patient's symptoms suggestive of a new infection, such as: -Pneumonia -Skin, Soft Tissue -Endocarditis -UTI -Bone, Joint Infection -Implantable Device -Acute Abdominal Infection -Wound Infection -Meningitis -Blood Stream Catheter Infection -Unknown Review of Systems - Review Of Systems Constitutional: Reports: No symptoms Eyes: Reports: No symptoms Ears, Nose, Mouth, Throat: Reports: No symptoms Respiratory: Reports: No symptoms Cardiac: Reports: No symptoms GI: Reports: No symptoms : Reports: No symptoms Musculoskeletal: Reports: No symptoms Skin: Reports: No symptoms Neurological: Reports: Anxiety Endocrine: Reports: No symptoms Hematologic/Lymphatic: Reports: No symptoms All Other Systems: Reviewed and Negative Past Medical History - Past Medical History Previously Healthy: Yes Endocrine: Reports: Hypothyroid, Dyslipidemia Cardiovascular: Reports: Hypertension Respiratory: Reports: None Hematological: Reports: None Gastrointestinal: Reports: None Genitourinary: Reports: None Neuro/Psych: Reports: Anxiety, Depression Musculoskeletal: Reports: Arthritis Cancer: Reports: Breast (bilateral), Other (bladder) Last Menstrual Period: 1974 hyst - Surgical History General Surgical History: Reports: Cholecystectomy, Other - Family History Family History: Reports: Unknown - Social History Smoking Status: Former smoker Hx Substance Use: No Alcohol Screening: None - Immunizations Tetanus Shot up to Date: No (unsure) Influenza Vaccine within 12 Months: Yes Pneumococcal Vaccine up to Date: Yes Physical Exam - Physical Exam Appearance: Well-appearing, No pain distress, Well-nourished Eyes: ОЛЕГ, EOMI, Conjunctiva clear ENT: Ears normal, Nose normal, Oropharynx normal Respiratory: Airway patent, Breath sounds clear, Breath sounds equal, Respirations nonlabored Cardiovascular: RRR, Pulses normal, No rub, No murmur GI/: Soft, Nontender, No masses, Bowel sounds normal, No Organomegaly Musculoskeletal: Normal strength, ROM intact, No edema, No calf tenderness Skin: Warm, Dry, Normal color Neurological: Sensation intact, Motor intact, Reflexes intact, Cranial nerves intact, Alert, Oriented Psychiatric: Anxious Re-Evaluation - Re-Evaluation Time of Re-Evaluation: 00:32 Status: Improved Vital Signs Stable: Yes (BP 158/60, p 52, R 18) Critical Care Note - Critical Care Note Total Time (mins): 0 Course - Course Vital Signs: Temp Pulse Resp BP Pulse Ox 11/23/18 00:33 52 L 18 158/60 H 11/22/18 23:49 96.8 F L 51 L 22 177/61 H 96 Departure - Departure Time of Disposition: 00:33 Disposition: HOME SELF-CARE Discharge Problem: Hypertension Qualifiers: Hypertension type: essential hypertension Qualified Code(s): I10 - Essential ( primary) hypertension Instructions: Chronic Hypertension (ED) Condition: Fair Pt referred to PMD for follow-up: Yes IPMP verified?: No Additional Instructions: Continue your home medications Follow up with PCP if blood pressure is consistently > 180/90 Allergies/Adverse Reactions: Allergies No Known Allergies Allergy (Verified 11/22/18 23:59) Home Medications: Ambulatory Orders Polyethylene Glycol 3350 [Miralax] 17 gm PO BID 09/13/12 Alprazolam [Xanax] 0.25 mg PO TID 12/23/12 [place]-3 Fatty Acids/Fish Oil [Fish Oil 1,000 mg Capsule] 1,000 mg PO TID Clonidine HCl 0.2 mg PO TID 05/26/13 Simvastatin [Zocor] 40 mg PO DAILY 07/10/15 Aspirin 81 mg PO DAILY 06/26/18 B2/Vits A,C,E/Lut/Zeaxanth/Min [Icaps Tablet] 1 tab PO DAILY 06/26/18 Furosemide [Lasix] 20 mg PO 2 TIMES PER WEEK 06/26/18 Levothyroxine Sodium [Synthroid] 100 mcg PO DAILY 06/26/18 Nitroglycerin [Nitrostat] 0.4 mg SL DIRECTED PRN 06/26/18 Non-Formulary Medication 1 drop EACHEYE DAILY 06/27/18 Olmesartan/Hydrochlorothiazide [Benicar Hct 40-25 mg Tablet] 1 tab PO DAILY Disposition Discussed With: Patient, Family
[2018-11-23 00:34] VITALS: BP 158/60
== END 2018-11-23 00:40 | disposition home or self-care (01) ==
LOC: ED 23:47
DX: I10 Essential (primary) hypertension (principal); E78.5 Hyperlipidemia, unspecified; E03.9 Hypothyroidism, unspecified; Z79.899 Other long term (current) drug therapy; R35.0 Frequency of micturition; M79.671 Pain in right foot
CPT/HCPCS: 81001; 87086; 99282